=== PATIENT | female | born 1985 | race Caucasian/White ===

== ENCOUNTER → 2017-05-08 | Outpatient (CLI) | payer MEDICAID | END | disposition home or self-care (01) | LOC: PETCFH 10:12 | PROVIDERS: ATTEND Internal Medicine Gastroenterology | DX: R10.30 Lower abdominal pain, unspecified (principal); R12 Heartburn; R19.7 Diarrhea, unspecified; R11.0 Nausea | CPT/HCPCS: 78264; A9541 ==

== ENCOUNTER 2021-06-08 09:30 | Emergency (ER) | payer MEDICAID ==
[~2021-06-08] VITALS: Ht 160 cm; Wt 98.2 kg
[2021-06-08 10:08] VITALS: BP 128/77
== END 2021-06-08 10:40 | disposition home or self-care (01) ==
LOC: ED 09:57
DX: R09.1 Pleurisy (principal); R07.89 Other chest pain
CPT/HCPCS: 93005; 99283